=== PATIENT | female | born 1930 | race Caucasian/White ===

== ENCOUNTER 2017-05-17 17:50 | Emergency (ER) | payer OTHER ==
[2017-05-17 18:23] VITALS: RESP 18
--- NOTE | 2017-05-17 18:56 | EDPHY ---
H & P Time Seen by Provider: 05/17/17 18:49 HPI/ROS: CHIEF COMPLAINT: Fall HISTORY OF PRESENT ILLNESS: The patient is an 86 y/o female arriving with family post fall. She tripped and fell on her glasses, causing her glasses to cut her eyebrow. Her glasses did not break. She denies headache, neck pain, or other associated symptoms. She denies loss of consciousness. She denies taking anticoagulants. She is unsure of her last tetanus vaccination. REVIEW OF SYSTEMS: Constitutional: No fever, no chills Eyes: No visual changes ENT: No sore throat Respiratory: No cough, no shortness of breath Cardiac: No chest pain Gastrointestinal: No nausea, no vomiting, no abdominal pain Genitourinary: No hematuria, no dysuria Musculoskeletal: No leg pain or swelling Skin: No rash Neurological: No headache, no numbness, no weakness Psychiatric: No depression Past Medical/Surgical History: Denies Social History: Lives at [facility], daughters at bedside, 12 children Smoking Status: Never smoked Physical Exam: General Appearance: Alert, pleasant and talkative Eyes: Right periorbital ecchymosis, no bony tenderness, Pupils equal and round , no conjunctival pallor or injection ENT, Mouth: Mucous membranes moist, no dental injury Neck: Normal inspection, nontender, range of motion without pain Respiratory: Lungs are clear to auscultation Cardiovascular: Regular rate and rhythm Gastrointestinal: Abdomen is soft and non-tender Neurological: Alert, oriented x3, cranial nerves II through XII intact, motor 5 /5, sensory intact to light touch, normal gait Skin: 4cm laceration to the right eyebrow Extremities: Normal inspection Psychiatric: Mood and affect normal Constitutional: Initial Vital Signs Temperature (C) 36.9 C 05/17/17 18:20 Heart Rate 80 05/17/17 18:20 Respiratory Rate 18 05/17/17 18:20 Blood Pressure 185/84 H 05/17/17 18:20 O2 Sat (%) 92 05/17/17 18:20 O2 Delivery Mode Room Air Allergies/Adverse Reactions: No Known Allergies Allergy (Verified 05/17/17 18:19) Home Medications: Medication Instructions Recorded amLODIPine BESYLATE [Norvasc 2.5 2.5 mg PO DAILY #20 tab 05/17/17 mg (*)] Medical Decision Making Procedures: Procedure: Laceration repair. The 4 cm laceration on the right eyebrow area was anesthetized using lidocaine with epinephrine. The wound was irrigated, draped and explored to its base with a gloved finger. There were no deep structures involved. No foreign body palpable. The wound was repaired with 6 0 Ethilon. The wound repair was simple. ED Course/Re-evaluation: The patient is an 86 y/o female complaining fo a laceration to the right eyebrow after a fall. She denies headache, loss of consciousness, neck pain or other associated symptoms. She denies taking anticoagulants. Plan for sutures to repair laceration. The patient's blood pressure is 185/84. She has not seen a primary care physician is decades. I suspect that she may have longstanding hypertension, though it is unclear at this point. I will treat the hypertension with a low dose of Norvasc and have her follow up with an athletic instructor. Norvasc 2.5 mg orally given. She will take and record her blood pressure twice daily. Differential Diagnosis: The differential diagnosis for this patient's symptoms includes but is not limited to fracture, retained foreign body, ocular injury, dental injury, intracranial hemorrhage - Data Points Medications Given: Discontinued Medications Amlodipine Besylate (Norvasc) 2.5 mg PO EDNOW ONE Stop: 05/17/17 20:20 Last Admin: 05/17/17 20:24 Dose: 2.5 mg Departure - Departure Disposition: Home, Routine, Self-Care Clinical Impression: Laceration Facial laceration Qualifiers: Encounter type: initial encounter Qualified Code(s): S01.81XA - Laceration without foreign body of other part of head, initial encounter Hypertension Qualifiers: Hypertension type: essential hypertension Qualified Code(s): I10 - Essential ( primary) hypertension Condition: Good Instructions: Care For Your Stitches (ED), Laceration (ED) Additional Instructions: 1. Take your blood pressure twice a day. Record each blood pressure. 2. Follow-up with your primary care provider in a week for high blood pressure. 3. Return to the ED for suture removal in 5 days. 4. Return immediately to the ED for confusion, loss of consciousness, or other worsening of condition. Referrals: Felicia Rai MD [Primary Care Provider] - As per Instructions Prescriptions: amLODIPine BESYLATE [Norvasc 2.5 mg (*)] 2.5 mg PO DAILY #20 tab Report Scribed for: Tova Gonzalez Report Scribed by: Mikala Womack Date of Report: 05/17/17 Time of Report: 18:52 Physician Review and Approval Statement: 05/17/17 18:52 Portions of this note were transcribed by a bio medical technician. I personally performed a history, physical exam, medical decision making, and confirmed accuracy of information the transcribed note.
[2017-05-17 20:08] VITALS: BP 192/109; PULSE 75; TEMP 97.9; O2SAT 96
[2017-05-17] MEDS ORDERED: amLODIPine BESYLATE 5 MG TAB PO ONE (20:19)
[2017-05-19] MEDS ORDERED: TDAP ADULT 0.5 ML INJ (BOOSTRIX) IM ONE (10:47)
== END 2017-05-17 20:31 | disposition home or self-care (01) ==
PROC: 0HQ1XZZ Repair Face Skin, External Approach (ICD-10-PCS; principal; 2017-05-17)
DX: S01.111A Laceration without foreign body of right eyelid and periocular area, initial encounter (principal); I10 Essential (primary) hypertension; Z23 Encounter for immunization; W18.02XA Striking against glass with subsequent fall, initial encounter